=== PATIENT | female | born 1970 | race Caucasian/White ===

== ENCOUNTER 2016-12-06 09:59 | Outpatient (CLI) | payer OTHER ==
--- NOTE | 2016-12-06 15:14 | Diagnostic Imaging Report ---
Thyroid ultrasound HISTORY: Nodules The right lobe of thyroid gland is small (2.7 x 1.0 x 1.1 cm). No focal lesions or nodules. The left lobe is also small (2.6 x 1.1 x 1.2 cm). No nodules identified. IMPRESSION: 1. Relatively small thyroid gland with no nodules identified.
== END 2016-12-06 10:30 | disposition home or self-care (01) ==
LOC: RAD 09:59 → EEVIPCON 09:59 → RAD 10:30
DX: E04.2 Nontoxic multinodular goiter (principal)
CPT/HCPCS: 76536-TC

== ENCOUNTER 2017-01-24 08:03 | Outpatient (CLI) | payer OTHER ==
[2017-01-24 09:19] LABS: CHOLESTEROL 160 mg/dL (<200); TRIGLYCERIDES 122 mg/dL (<150)
== END 2017-01-24 08:20 | disposition home or self-care (01) ==
LOC: LAB 08:03
DX: I10 Essential (primary) hypertension (principal); E78.2 Mixed hyperlipidemia; E03.9 Hypothyroidism, unspecified; R73.09 Other abnormal glucose
CPT/HCPCS: 36415-UA; 80061-TC; 83036-90; 84439-90; 84443-TC